=== PATIENT | male | born 1935 | race Caucasian/White ===

== ENCOUNTER 2016-10-01 00:02 | Observation (INO) | payer OTHER ==
[~2016-10-01] VITALS: Ht 177.8 cm; Wt 66.0 kg
[~2016-10-01 00:02] MED LIST: ARICEPT10 MG PO; ATENOLOL50 M1 PO; ATIVAN INTE2 MG/1 ML PO; Antivert PO; CITALOPRAM HBR20 MG PO; HYDROCHLOROTH12.5 M3 PO; LEXAPRO10 MG PO; LEXAPRO20 MG PO; LIPITOR40 MG PO; MORPHINE CON20 MG/M1 PO; NAMENDA10 MG PO; OMNICEF50 MG/1 ML PO; SEROQUEL50 MG PO; TRAZODONE HCL50 MG PO; TYLENOL EXTRA500 MG PO; ULTRAM50 MG PO; ZOCOR80 MG PO
[2016-10-01 00:57] LABS: HEMATOCRIT 43.7 % (38.0-50.0); MCH 29.9 PG (29.0-34.0); MCHC 34.1 G/DL (30.0-36.0); MCV 87.8 FL (86-99); MEAN PLAT.VOLUME 10.7 uM^3 (9.0-12.4); PLATELET COUNT 186 K/uL (156-360); RBC DIS.WIDTH-CV 13.8 % (11.8-14.6); RBC DIS.WIDTH-SD 43.5 % (39-53); RED BLOOD COUNT 4.98 M/uL (4.00-5.50); WHITE BLOOD COUNT 12.9 K/uL (4.1-10.2)
[2016-10-01 01:00] LABS: BASOPHIL COUNT 0.1 K/uL (0-0.1); EOSINOPHIL (%) 2.3 % (0-5); EOSINOPHIL COUNT 0.3 K/uL (0-0.3); IMMATURE GRANULOCYTE (%) 2.2 % (0.0-0.7); IMMATURE GRANULOCYTE COUNT 2.8 K/uL; LYMPHOCYTE COUNT 1.6 K/uL (1.0-2.8); NEUTROPHIL (%) 74.6 % (45-76); NEUTROPHIL COUNT 9.6 K/uL (1.8-6.4)
[2016-10-01 01:06] LABS: CHLORIDE 108 mEq/L (99-109); POTASSIUM 4.4 mEq/L (3.7-5.4); SODIUM 141 mEq/L (136-147)
[2016-10-01 01:08] LABS: GLUCOSE 143 mg/dL (70-99)
[2016-10-01 01:10] LABS: ANION GAP 8 MEQ/L (2-14); TOTAL BILIRUBIN 1.5 mg/dL (0.0-1.0)
[2016-10-01 01:12] LABS: ALKALINE PHOSPHATASE 253 IU/L (3-129); GFR ESTIMATE (CALCULATED) > 59 mL/min/
[2016-10-01 01:13] LABS: UREA NITROGEN (BUN) 9 mg/dL (9-23)
[2016-10-01 01:15] LABS: LIPASE 707 U/L (1.0-51.0)
[2016-10-01 01:18] LABS: TROP-I INTERPRETATION NEGATIVE; TROPONIN-I < 0.01 ng/mL (0.0-0.30)
[2016-10-01 04:22] LABS: ADD MIUA? NO; BILIRUBIN NEGATIVE; BLOOD NEGATIVE; COLOR STRAW ((YELLOW)); GLUCOSE (STRIP) NEGATIVE; KETONES NEGATIVE; LEUKOCYTES NEGATIVE; NITRITE NEGATIVE; PROTEIN (STRIP) NEGATIVE; UCUL ADDED? NO
[2016-10-01 04:40] LABS: SPECIFIC GRAVITY 1.057 (1.000-1.030)
[2016-10-01 05:11] LABS: INFLUENZA A VIRAL ANTIGEN NEGATIVE; INFLUENZA B VIRAL ANTIGEN NEGATIVE
[2016-10-01 05:16] LABS: BASE EXCESS -1.2 mEq/L (-3 to +3); BICARBONATE 22.7 mEq/L (22-26); CARBOXY HGB 1.9 % (0-5); COMMENTS - BLOOD GASES C+; DEVICE ROOM AIR; METHEMOGLOBIN 1.3 % (0-1.5); PCO2 35 mm Hg (35-45); PO2 79 mm Hg (80-100); SITE RB; pH 7.42 (7.35-7.45)
[2016-10-01 06:59] LABS: CREATINE KINASE 885 IU/L (1-294); SALICYLATE < 5.0 MG/DL (15-30)
[2016-10-01 12:46] VITALS: BP 132/84
[2016-10-01 14:43] LABS: HEMATOCRIT 43.9 % (38.0-50.0); MCHC 33.7 G/DL (30.0-36.0); MEAN PLAT.VOLUME 11.9 uM^3 (9.0-12.4); PLATELET COUNT 218 K/uL (156-360); RBC DIS.WIDTH-CV 13.6 % (11.8-14.6); RED BLOOD COUNT 4.93 M/uL (4.00-5.50)
[2016-10-01 15:04] LABS: ALKALINE PHOSPHATASE 192 IU/L (3-129); ANION GAP 9 MEQ/L (2-14); CHLORIDE 106 MEQ/L (99-109); CREATINE KINASE 868 IU/L (1-294); GFR ESTIMATE (CALCULATED) > 59 mL/min/; GLUCOSE 110 mg/dL (70-99); POTASSIUM 4.1 MEQ/L (3.7-5.4); SAMPLE HEMOLYSIS CHECK 0; SAMPLE ICTERIC CHECK 0; SAMPLE LIPEMIA CHECK 0; SODIUM 141 MEQ/L (136-147); TOTAL CK 868 IU/L (1-294); UREA NITROGEN (BUN) 7 mg/dL (9-23)
[2016-10-01 16:13] LABS: CK-MB 9.1 ng/mL (0.0-4.9)
[2016-10-01 19:53] VITALS: BP 146/76
[2016-10-01 23:59] VITALS: BP 157/70
[2016-10-02 07:32] LABS: ALKALINE PHOSPHATASE 165 IU/L (3-129); ANION GAP 11 MEQ/L (2-14); CHLORIDE 108 MEQ/L (99-109); GFR ESTIMATE (CALCULATED) > 59 mL/min/; GLUCOSE 101 mg/dL (70-99); POTASSIUM 3.7 MEQ/L (3.7-5.4); SAMPLE HEMOLYSIS CHECK 0; SAMPLE ICTERIC CHECK 0; SAMPLE LIPEMIA CHECK 0; SODIUM 140 MEQ/L (136-147); TOTAL BILIRUBIN 1.1 MG/DL (0.0-1.0); UREA NITROGEN (BUN) 6 mg/dL (9-23)
[2016-10-02 07:37] LABS: EOSINOPHIL (%) 2.2 % (0-5); EOSINOPHIL COUNT 0.2 K/uL (0-0.3); HEMATOCRIT 40.7 % (38.0-50.0); IMMATURE GRANULOCYTE (%) 1.8 % (0.0-0.7); IMMATURE GRANULOCYTE COUNT 0.2 K/uL; LYMPHOCYTE COUNT 2.3 K/uL (1.0-2.8); MCH 30.3 PG (29.0-34.0); MCHC 34.6 G/DL (30.0-36.0); MCV 87.3 FL (86-99); MEAN PLAT.VOLUME 11.3 uM^3 (9.0-12.4); MONOCYTE (%) 12.9 % (3-12); MONOCYTE COUNT 1.4 K/uL (0-0.8); NEUTROPHIL (%) 62.4 % (45-76); NEUTROPHIL COUNT 6.9 K/uL (1.8-6.4); PLATELET COUNT 184 K/uL (156-360); RBC DIS.WIDTH-CV 13.6 % (11.8-14.6); RBC DIS.WIDTH-SD 43.2 % (39-53); RED BLOOD COUNT 4.66 M/uL (4.00-5.50); WHITE BLOOD COUNT 11.1 K/uL (4.1-10.2)
[2016-10-02 08:15] VITALS: BP 147/73
[2016-10-02 12:06] VITALS: BP 145/74
[2016-10-02 16:37] VITALS: BP 119/69
[2016-10-02 22:38] VITALS: BP 168/83
[2016-10-03 03:12] VITALS: BP 174/76
[2016-10-03 08:16] VITALS: BP 191/87
[2016-10-03] MEDS ORDERED: ATIVAN0.5 MG PO ×2 (10:38→15:04)
[2016-10-03] MEDS ORDERED: MORPHINE CON20 MG/M1 PO ×2 (10:38→15:04)
[2016-10-03] MEDS ORDERED: MEMANTINE HCL10 MG PO (10:50)
[2016-10-03] MEDS ORDERED: ATORVASTATIN CA40 MG PO (10:50)
[2016-10-03] MEDS ORDERED: DONEPEZIL HCL10 MG PO (10:51)
[2016-10-03 11:40] VITALS: BP 144/76
== END 2016-10-03 15:15 | disposition hospice, home (50) ==
LOC: EME → EDBD 00:02 → EME 00:02 → EDOF 07:36 → 5EAST 07:36 → EDOF 08:25 → 5EAST 12:40
PROVIDERS: Emergency Medicine; Hospitalist
DX: K85.80 Other acute pancreatitis without necrosis or infection (principal); R74.0 Nonspecific elevation of levels of transaminase and lactic acid dehydrogenase [LDH]; R45.1 Restlessness and agitation; G30.9 Alzheimer's disease, unspecified; F02.80 Dementia in other diseases classified elsewhere, unspecified severity, without behavioral disturbance, psychotic disturbance, mood disturbance, and anxiety; Z66 Do not resuscitate
CPT/HCPCS: 36600; 70450; 71010; 74177; 80053; 81003; 82550; 82550 91; 82553; 82803; 83605; 83690; 83735; 84484; 85025; 85027; 87040; 87502; 93005; 99281; 99285; C9113; G0378; G0480; J0696; J1630; J1650; J2270; J2310; J7030; J7050

== ENCOUNTER 2017-02-15 11:05 | Inpatient (IN) | payer OTHER ==
[~2017-02-15] VITALS: Ht 170.2 cm; Wt 64.5 kg
[~2017-02-15 11:05] MED LIST changes: +ATIVAN0.5 MG PO; +ATORVASTATIN CA40 MG PO; +DONEPEZIL HCL10 MG PO; +MEMANTINE HCL10 MG PO
[2017-02-15 11:42] LABS: BASOPHIL COUNT 0.1 K/uL (0-0.1); EOSINOPHIL COUNT 0.2 K/uL (0-0.3); HEMATOCRIT 45.6 % (38.0-50.0); IMMATURE GRANULOCYTE (%) 2.8 % (0.0-0.7); IMMATURE GRANULOCYTE COUNT 0.5 K/uL; INSTRUMENT ABS NEUTROPHIL CT 12.9 K/uL; LYMPHOCYTE COUNT 3.7 K/uL (1.0-2.8); MCH 29.5 PG (29.0-34.0); MCHC 32.5 G/DL (30.0-36.0); MCV 90.8 FL (86-99); MONOCYTE (%) 9.6 % (3-12); MONOCYTE COUNT 1.9 K/uL (0-0.8); NEUTROPHIL COUNT 12.9 K/uL (1.8-6.4); PLATELET COUNT 193 K/uL (156-360); RBC DIS.WIDTH-CV 12.6 % (11.8-14.6); RBC DIS.WIDTH-SD 41.3 % (39-53); RED BLOOD COUNT 5.02 M/uL (4.00-5.50); WHITE BLOOD COUNT 19.3 K/uL (4.1-10.2)
[2017-02-15 11:50] LABS: INTER. NORMALIZED RATIO 1.1; PROTHROMBIN TIME 10.7 (9.2-11.2)
[2017-02-15 11:51] LABS: CHLORIDE 106 mEq/L (99-109); POTASSIUM 4.6 mEq/L (3.7-5.4); SODIUM 141 mEq/L (136-147)
[2017-02-15 11:53] LABS: GLUCOSE 139 mg/dL (70-99)
[2017-02-15 11:54] LABS: ANION GAP 16 MEQ/L (2-14)
[2017-02-15 11:57] LABS: GFR ESTIMATE (CALCULATED) > 59 mL/min/
[2017-02-15 11:58] LABS: UREA NITROGEN (BUN) 8 mg/dL (9-23)
[2017-02-15 15:59] LABS: CK-MB 0.8 ng/mL (0.0-4.9)
[2017-02-15 16:01] LABS: CREATINE KINASE 99 IU/L (1-294); TOTAL CK 99 IU/L (1-294)
[2017-02-15] MEDS ORDERED: ARICEPT10 MG PO (16:40)
[2017-02-15] MEDS ORDERED: NAMENDA10 MG PO (16:40)
[2017-02-15] MEDS ORDERED: LIPITOR80 MG PO (16:40)
[2017-02-15] MEDS ORDERED: SEROQUEL12.5 MG PO (16:41)
[2017-02-15] MEDS ORDERED: TRAZODONE HCL50 MG PO (16:41)
[2017-02-15] MEDS ORDERED: CITALOPRAM HBR20 MG PO (16:41)
[2017-02-15] MEDS ORDERED: ATIVAN INTE2 MG/1 ML PO (16:42)
[2017-02-15] MEDS ORDERED: TYLENOL PM1 CAPLET PO (16:42)
[2017-02-15] MEDS ORDERED: DULCOLAX10 MG PR (16:43)
[2017-02-15] MEDS ORDERED: MORPHINE CON20 MG/M1 PO (16:44)
[2017-02-15] MEDS ORDERED: COMPAZINE10 MG PO (16:44)
[2017-02-15] MEDS ORDERED: LORAZEPAM0.5 MG PO (16:45)
[2017-02-15] MEDS ORDERED: TYLENOL650 MG PR (16:46)
[2017-02-15] MEDS ORDERED: LEVSIN-SL0.125 MG SL (16:46)
[2017-02-15] MEDS ORDERED: HALOPERIDOL2 MG/1 ML PO (16:46)
[2017-02-15 17:25] VITALS: BP 139/67
[2017-02-15 22:13] VITALS: BP 134/64
[2017-02-15 23:40] VITALS: BP 126/61
[2017-02-16 03:55] VITALS: BP 129/75
[2017-02-16 06:25] LABS: HEMATOCRIT 38.5 % (38.0-50.0); MCH 30.9 PG (29.0-34.0); MCHC 34.8 G/DL (30.0-36.0); MCV 88.9 FL (86-99); MEAN PLAT.VOLUME 11.2 uM^3 (9.0-12.4); PLATELET COUNT 194 K/uL (156-360); RBC DIS.WIDTH-CV 12.7 % (11.8-14.6); RBC DIS.WIDTH-SD 41.6 % (39-53); RED BLOOD COUNT 4.33 M/uL (4.00-5.50); WHITE BLOOD COUNT 24.7 K/uL (4.1-10.2)
[2017-02-16 06:50] LABS: ANION GAP 12 MEQ/L (2-14); CHLORIDE 104 MEQ/L (99-109); GFR ESTIMATE (CALCULATED) > 59 mL/min/; GLUCOSE 184 mg/dL (70-99); POTASSIUM 4.5 MEQ/L (3.7-5.4); SAMPLE HEMOLYSIS CHECK 0; SAMPLE ICTERIC CHECK 0; SAMPLE LIPEMIA CHECK 0; SODIUM 138 MEQ/L (136-147); UREA NITROGEN (BUN) 10 mg/dL (9-23)
[2017-02-16 09:07] VITALS: BP 134/92
[2017-02-16 10:02] LABS: POINT-OF-CARE METER ID UU14188577
[2017-02-16 11:08] LABS: HEMATOCRIT 36.3 % (38.0-50.0); MCH 30.6 PG (29.0-34.0); MCHC 34.2 G/DL (30.0-36.0); MCV 89.6 FL (86-99); MEAN PLAT.VOLUME 11.3 uM^3 (9.0-12.4); PLATELET COUNT 191 K/uL (156-360); RBC DIS.WIDTH-CV 12.7 % (11.8-14.6); RBC DIS.WIDTH-SD 41.6 % (39-53); RED BLOOD COUNT 4.05 M/uL (4.00-5.50)
[2017-02-16 11:52] LABS: ALKALINE PHOSPHATASE 178 IU/L (3-129); ANION GAP 11 MEQ/L (2-14); CHLORIDE 103 MEQ/L (99-109); GFR ESTIMATE (CALCULATED) > 59 mL/min/; GLUCOSE 151 mg/dL (70-99); POTASSIUM 4.2 MEQ/L (3.7-5.4); SAMPLE HEMOLYSIS CHECK 0; SAMPLE ICTERIC CHECK 0; SAMPLE LIPEMIA CHECK 0; SODIUM 137 MEQ/L (136-147); TOTAL BILIRUBIN 1.7 MG/DL (0.0-1.0); UREA NITROGEN (BUN) 12 mg/dL (9-23)
[2017-02-16 11:53] LABS: TROP-I INTERPRETATION NEGATIVE; TROPONIN-I 0.01 ng/mL (0.0-0.30)
[2017-02-16 12:32] VITALS: BP 126/68
[2017-02-16 16:32] VITALS: BP 124/64
[2017-02-16 19:31] VITALS: BP 132/87
[2017-02-16 23:16] VITALS: BP 150/70
[2017-02-17 04:37] VITALS: BP 119/58
[2017-02-17 07:10] LABS: HEMATOCRIT 28.7 % (38.0-50.0); MCH 30.3 PG (29.0-34.0); MCHC 34.5 G/DL (30.0-36.0); MCV 87.8 FL (86-99); MEAN PLAT.VOLUME 11.1 uM^3 (9.0-12.4); PLATELET COUNT 170 K/uL (156-360); RBC DIS.WIDTH-CV 12.6 % (11.8-14.6); RBC DIS.WIDTH-SD 40.3 % (39-53); RED BLOOD COUNT 3.27 M/uL (4.00-5.50); WHITE BLOOD COUNT 18.2 K/uL (4.1-10.2)
[2017-02-17 07:17] LABS: ANION GAP 7 MEQ/L (2-14); CHLORIDE 100 MEQ/L (99-109); GFR ESTIMATE (CALCULATED) > 59 mL/min/; GLUCOSE 141 mg/dL (70-99); POTASSIUM 4.5 MEQ/L (3.7-5.4); SAMPLE HEMOLYSIS CHECK 0; SAMPLE ICTERIC CHECK 0; SAMPLE LIPEMIA CHECK 0; SODIUM 132 MEQ/L (136-147); UREA NITROGEN (BUN) 17 mg/dL (9-23)
[2017-02-17 08:32] VITALS: BP 117/78
[2017-02-17 11:05] VITALS: BP 142/65
[2017-02-17 15:00] VITALS: BP 119/59
[2017-02-17 19:44] VITALS: BP 134/54
[2017-02-17 22:35] LABS: ADD MIUA? YES; BILIRUBIN NEGATIVE; BLOOD SMALL; COLOR YELLOW ((YELLOW)); GLUCOSE (STRIP) NEGATIVE; KETONES NEGATIVE; LEUKOCYTES NEGATIVE; NITRITE NEGATIVE; PROTEIN (STRIP) NEGATIVE; SPECIFIC GRAVITY 1.017 (1.000-1.030)
[2017-02-17 22:51] LABS: BACTERIA NONE SEEN /HPF; EPITHELIAL CELLS NONE SEEN /HPF; HYALINE CASTS 0-5 /LPF; MUCUS TRACE /LPF
[2017-02-18 00:17] VITALS: BP 148/70
[2017-02-18 07:06] VITALS: BP 133/61
[2017-02-18 08:41] LABS: HEMATOCRIT 24.1 % (38.0-50.0); MCH 30.4 PG (29.0-34.0); MCV 89.3 FL (86-99); MEAN PLAT.VOLUME 10.9 uM^3 (9.0-12.4); NRBC (%) 0.1 /100 WBC (0-0); PLATELET COUNT 173 K/uL (156-360); RBC DIS.WIDTH-CV 12.8 % (11.8-14.6); RBC DIS.WIDTH-SD 41.4 % (39-53); WHITE BLOOD COUNT 15.4 K/uL (4.1-10.2)
[2017-02-18 09:09] LABS: ANION GAP 5 MEQ/L (2-14); CHLORIDE 106 MEQ/L (99-109); GFR ESTIMATE (CALCULATED) > 59 mL/min/; GLUCOSE 130 mg/dL (70-99); POTASSIUM 3.9 MEQ/L (3.7-5.4); SAMPLE HEMOLYSIS CHECK 0; SAMPLE ICTERIC CHECK 0; SAMPLE LIPEMIA CHECK 0; SODIUM 138 MEQ/L (136-147); UREA NITROGEN (BUN) 11 mg/dL (9-23)
[2017-02-18 11:11] VITALS: BP 137/63
[2017-02-18 15:25] VITALS: BP 123/63
[2017-02-18 20:10] VITALS: BP 130/69
[2017-02-18 23:33] VITALS: BP 134/60
[2017-02-19 04:00] VITALS: BP 132/78
[2017-02-19 07:58] VITALS: BP 164/69
[2017-02-19 11:54] VITALS: BP 124/60
[2017-02-19 12:53] LABS: HEMATOCRIT 26.2 % (38.0-50.0); MCHC 33.2 G/DL (30.0-36.0); MCV 90.3 FL (86-99); MEAN PLAT.VOLUME 10.2 uM^3 (9.0-12.4); NRBC (%) 0.3 /100 WBC (0-0); RBC DIS.WIDTH-CV 12.9 % (11.8-14.6); RBC DIS.WIDTH-SD 41.6 % (39-53); WHITE BLOOD COUNT 15.9 K/uL (4.1-10.2)
[2017-02-19 13:05] LABS: PLATELET COUNT 258 K/uL (156-360)
[2017-02-19 13:10] LABS: ANION GAP 8 MEQ/L (2-14); CHLORIDE 109 MEQ/L (99-109); GFR ESTIMATE (CALCULATED) > 59 mL/min/; GLUCOSE 113 mg/dL (70-99); POTASSIUM 3.7 MEQ/L (3.7-5.4); SAMPLE HEMOLYSIS CHECK 0; SAMPLE ICTERIC CHECK 0; SAMPLE LIPEMIA CHECK 0; SODIUM 142 MEQ/L (136-147); UREA NITROGEN (BUN) 10 mg/dL (9-23)
[2017-02-19 13:50] LABS: ABS NEUTROPHIL COUNT 11.5; ANISOCYTOSIS 1+; ATYPICAL LYMPHOCYTE 0.8 %; EOSINOPHIL ABS CT 0.5; EOSINOPHILS 3.4 % (0-5.0); LYMPHOCYTES 13.7 % (15.0-45.0); MACROCYTES 1+; METAMYELOCYTES 0.9 %; MYELOCYTES 0.9 %; OVALOCYTES 1+; PLAT.SUFFICIENCY ADEQUATE; SEG.NEUTROPHILS 72.6 % (46.0-76.0)
[2017-02-19 15:49] VITALS: BP 125/57
[2017-02-19 23:53] VITALS: BP 102/54
[2017-02-20 03:16] VITALS: BP 122/59
[2017-02-20 06:42] LABS: HEMATOCRIT 23.8 % (38.0-50.0); MCH 29.9 PG (29.0-34.0); MCHC 32.8 G/DL (30.0-36.0); MCV 91.2 FL (86-99); MEAN PLAT.VOLUME 10.4 uM^3 (9.0-12.4); NRBC (%) 0.3 /100 WBC (0-0); PLATELET COUNT 239 K/uL (156-360); RBC DIS.WIDTH-CV 13.3 % (11.8-14.6); RBC DIS.WIDTH-SD 42.5 % (39-53); RED BLOOD COUNT 2.61 M/uL (4.00-5.50); WHITE BLOOD COUNT 13.2 K/uL (4.1-10.2)
[2017-02-20 07:16] LABS: ABS NEUTROPHIL COUNT 8.6; ANISOCYTOSIS 1+; BAND NEUTROPHILS 1.8 % (0-8.0); BASOPHILS 1.8 %; EOSINOPHIL ABS CT 0.2; EOSINOPHILS 1.7 % (0-5.0); INSTRUMENT ABS NEUTROPHIL CT 7.6 K/uL; METAMYELOCYTES 0.9 %; MYELOCYTES 0.9 %; NUCLEATED RBC'S 0.9; PLAT.SUFFICIENCY ADEQUATE; SEG.NEUTROPHILS 63.7 % (46.0-76.0)
[2017-02-20 07:25] LABS: ANION GAP 8 MEQ/L (2-14); CHLORIDE 109 MEQ/L (99-109); GFR ESTIMATE (CALCULATED) > 59 mL/min/; GLUCOSE 113 mg/dL (70-99); POTASSIUM 3.9 MEQ/L (3.7-5.4); SAMPLE HEMOLYSIS CHECK 0; SAMPLE ICTERIC CHECK 0; SAMPLE LIPEMIA CHECK 0; SODIUM 142 MEQ/L (136-147); UREA NITROGEN (BUN) 11 mg/dL (9-23)
[2017-02-20 07:56] VITALS: BP 124/68
[2017-02-20 19:44] VITALS: BP 133/81
[2017-02-20 23:43] VITALS: BP 135/62
[2017-02-21 03:55] VITALS: BP 129/62
[2017-02-21 06:07] LABS: HEMATOCRIT 25.1 % (38.0-50.0); MCHC 33.9 G/DL (30.0-36.0); MCV 91.6 FL (86-99); MEAN PLAT.VOLUME 10.3 uM^3 (9.0-12.4); NRBC (%) 0.4 /100 WBC (0-0); PLATELET COUNT 290 K/uL (156-360); RBC DIS.WIDTH-CV 13.6 % (11.8-14.6); RBC DIS.WIDTH-SD 43.1 % (39-53); RED BLOOD COUNT 2.74 M/uL (4.00-5.50); WHITE BLOOD COUNT 11.5 K/uL (4.1-10.2)
[2017-02-21 06:52] LABS: ABS NEUTROPHIL COUNT 6.7; BAND NEUTROPHILS 0.9 % (0-8.0); EOSINOPHIL ABS CT 0.4; EOSINOPHILS 3.5 % (0-5.0); INSTRUMENT ABS NEUTROPHIL CT 6.3 K/uL; METAMYELOCYTES 3.5 %; MYELOCYTES 6.9 %; NUCLEATED RBC'S 0.9; PLAT.SUFFICIENCY ADEQUATE; SEG.NEUTROPHILS 57.4 % (46.0-76.0)
[2017-02-21 08:03] VITALS: BP 129/71
[2017-02-21 08:56] LABS: ANION GAP 12 MEQ/L (2-14); CHLORIDE 110 MEQ/L (99-109); GFR ESTIMATE (CALCULATED) > 59 mL/min/; GLUCOSE 131 mg/dL (70-99); POTASSIUM 4.4 MEQ/L (3.7-5.4); SAMPLE HEMOLYSIS CHECK 0; SAMPLE ICTERIC CHECK 0; SAMPLE LIPEMIA CHECK 0; SODIUM 145 MEQ/L (136-147); UREA NITROGEN (BUN) 8 mg/dL (9-23)
[2017-02-21 11:18] VITALS: BP 145/67
[2017-02-21 16:20] VITALS: BP 138/86
[2017-02-21 20:07] VITALS: BP 129/95
[2017-02-22 00:33] VITALS: BP 146/69
[2017-02-22 07:12] LABS: HEMATOCRIT 25.3 % (38.0-50.0); MCH 30.7 PG (29.0-34.0); MCHC 33.2 G/DL (30.0-36.0); MCV 92.3 FL (86-99); MEAN PLAT.VOLUME 10.2 uM^3 (9.0-12.4); NRBC (%) 0.3 /100 WBC (0-0); PLATELET COUNT 316 K/uL (156-360); RBC DIS.WIDTH-CV 13.8 % (11.8-14.6); RBC DIS.WIDTH-SD 44.3 % (39-53); RED BLOOD COUNT 2.74 M/uL (4.00-5.50); WHITE BLOOD COUNT 13.6 K/uL (4.1-10.2)
[2017-02-22 07:35] LABS: ANION GAP 8 MEQ/L (2-14); CHLORIDE 107 MEQ/L (99-109); GFR ESTIMATE (CALCULATED) > 59 mL/min/; GLUCOSE 106 mg/dL (70-99); POTASSIUM 3.7 MEQ/L (3.7-5.4); SAMPLE HEMOLYSIS CHECK 0; SAMPLE ICTERIC CHECK 0; SAMPLE LIPEMIA CHECK 0; SODIUM 140 MEQ/L (136-147); UREA NITROGEN (BUN) 11 mg/dL (9-23)
[2017-02-22 08:33] VITALS: BP 156/72
[2017-02-22 11:26] LABS: ADD MIUA? YES; BILIRUBIN NEGATIVE; BLOOD NEGATIVE; COLOR YELLOW ((YELLOW)); GLUCOSE (STRIP) NEGATIVE; KETONES NEGATIVE; LEUKOCYTES SMALL; NITRITE NEGATIVE; PROTEIN (STRIP) NEGATIVE; SPECIFIC GRAVITY 1.006 (1.000-1.030); UROBILINOGEN 0.2 MG/DL (0.2-1.0)
[2017-02-22 12:14] LABS: RED BLOOD CELLS 0-5 /HPF (0-5)
[2017-02-22 12:15] LABS: BACTERIA 2+ /HPF; CASTS PRESENT /LPF; CRYSTALS NONE SEEN; EPITHELIAL CELLS RARE /HPF; FINE GRANULAR CASTS 0-5 /LPF; MUCUS RARE /LPF; WHITE BLOOD CELLS 0-5 /HPF (0-5)
[2017-02-22 13:36] LABS: INTERNAL CONTROL VALID? YES
[2017-02-22 19:57] VITALS: BP 133/63
[2017-02-22 23:25] VITALS: BP 106/68
[2017-02-23 06:25] LABS: HEMATOCRIT 27.6 % (38.0-50.0); MCH 30.8 PG (29.0-34.0); MCHC 33.3 G/DL (30.0-36.0); MCV 92.3 FL (86-99); MEAN PLAT.VOLUME 9.9 uM^3 (9.0-12.4); NRBC (%) 0.2 /100 WBC (0-0); PLATELET COUNT 387 K/uL (156-360); RBC DIS.WIDTH-CV 14.5 % (11.8-14.6); RBC DIS.WIDTH-SD 45.4 % (39-53); RED BLOOD COUNT 2.99 M/uL (4.00-5.50); WHITE BLOOD COUNT 16.1 K/uL (4.1-10.2)
[2017-02-23 06:50] LABS: ANION GAP 9 MEQ/L (2-14); CHLORIDE 108 MEQ/L (99-109); GFR ESTIMATE (CALCULATED) > 59 mL/min/; GLUCOSE 119 mg/dL (70-99); SAMPLE HEMOLYSIS CHECK 0; SAMPLE ICTERIC CHECK 0; SAMPLE LIPEMIA CHECK 0; SODIUM 142 MEQ/L (136-147); UREA NITROGEN (BUN) 13 mg/dL (9-23)
[2017-02-23 08:04] VITALS: BP 142/62
[2017-02-23] MEDS ORDERED: ANASPAZ0.125 MG PO (11:00)
[2017-02-23 16:17] VITALS: BP 126/68
== END 2017-02-23 17:04 | disposition hospice, home (50) | DRG 481 ==
LOC: EME 11:05 → EDOF 15:12 → 3EAST 15:12
PROVIDERS: Emergency Medicine; Hospitalist; Internal Medicine; Orthopaedic Surgery; Physician Assistant
PROC: 0QS736Z Reposition Left Upper Femur with Intramedullary Internal Fixation Device, Percutaneous Approach (ICD-10-PCS; principal; 2017-02-15)
DX: S72.142A Displaced intertrochanteric fracture of left femur, initial encounter for closed fracture (principal); S30.1XXA Contusion of abdominal wall, initial encounter; W19.XXXA Unspecified fall, initial encounter; D62 Acute posthemorrhagic anemia; L53.9 Erythematous condition, unspecified; I10 Essential (primary) hypertension; G30.9 Alzheimer's disease, unspecified; F02.81 Dementia in other diseases classified elsewhere, unspecified severity, with behavioral disturbance; F05 Delirium due to known physiological condition; F32.9 Major depressive disorder, single episode, unspecified; R74.0 Nonspecific elevation of levels of transaminase and lactic acid dehydrogenase [LDH]; I44.4 Left anterior fascicular block; Z66 Do not resuscitate; Z75.1 Person awaiting admission to adequate facility elsewhere; Z87.891 Personal history of nicotine dependence
CPT/HCPCS: 70450; 71010; 73501; 73502; 73552; 74177; 76000; 80048; 80053; 81003; 82272; 82550; 82553; 82948; 84450; 84460; 84484; 85014; 85018; 85025; 85027; 85610; 87086; 87493; 93005; 94760; 97530 GO; 97530 GP; 99281; 99285; C1713; J0690; J1100; J1170; J1200; J1650; J2060; J2270; J2405; J3010; S0028